=== PATIENT | male | born 2005 | race Caucasian/White ===

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

== ENCOUNTER 2024-12-13 17:48 | Emergency (ER) | payer OTHER ==
[2024-12-13] MEDS: LIDOCAINE/EPINEPHR/TETRACAINE 5 ML BOTTLE TOPICAL ONE (18:18)
[2024-12-13] MEDS: MORPHINE SULFATE 4 MG/ML SYRINGE IM STA (18:27)
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
--- NOTE | 2024-12-13 18:45 | XR ---
EXAMINATION TYPE: XR knee complete RT DATE OF EXAM: 12/13/2024 6:41 PM INDICATION: Patient age:Male; 19 years old; Reason for study: Pain; PHH. pain COMPARISON: None. TECHNIQUE: The Right knee(s) was examined in Frontal, lateral and oblique projections. FINDINGS: No evidence of any acute osseous pathology, soft tissue swelling, or joint effusion is no smiley. No radiopaque foreign body. IMPRESSION: No acute osseous pathology. [facility], , 12/13/2024 6:43 PM
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
[2024-12-13] MEDS: LIDOCAINE 1% INJ 10MG/ML (20 ML MDV) SQ ONE (19:48)
[2024-12-13 20:02] VITALS: BP 124/82; PULSE 64; RESP 18; TEMP 98.3
== END 2024-12-13 19:59 | disposition home or self-care (01) ==
LOC: EC 17:48
DX: S01.81XA Laceration without foreign body of other part of head, initial encounter (principal); S01.112A Laceration without foreign body of left eyelid and periocular area, initial encounter; M25.561 Pain in right knee; F17.290 Nicotine dependence, other tobacco product, uncomplicated; Z88.0 Allergy status to penicillin; V43.62XA Car passenger injured in collision with other type car in traffic accident, initial encounter; Y92.410 Unspecified street and highway as the place of occurrence of the external cause
CPT/HCPCS: 12013; 99285; 96372; 73562; 72125; 70486; 70450; J2270; J2003